=== PATIENT | male | born 1940 | race Caucasian/White ===

== ENCOUNTER → 2017-01-06 | Outpatient (CLI) | payer BC ==
[~2017-01-06] MED LIST: HYDR12.53 PO; PRAV40TA2 PO; SILD50TA PO; VALS320T2 PO
== END | disposition home or self-care (01) ==
LOC: RAD 09:26
PROVIDERS: ATTEND Internal Medicine Geriatric Medicine
DX: Z51.89 Encounter for other specified aftercare (principal); R13.10 Dysphagia, unspecified
CPT/HCPCS: 74230

== ENCOUNTER → 2018-03-15 | Outpatient (CLI) | payer BC | END | disposition home or self-care (01) | LOC: CVU 08:37 | PROVIDERS: ATTEND Internal Medicine Cardiovascular Disease | DX: I65.23 Occlusion and stenosis of bilateral carotid arteries (principal); G45.9 Transient cerebral ischemic attack, unspecified; I67.82 Cerebral ischemia; I10 Essential (primary) hypertension; R42 Dizziness and giddiness; I35.8 Other nonrheumatic aortic valve disorders; I77.1 Stricture of artery | CPT/HCPCS: 70450; 93880 ==

== ENCOUNTER → 2020-02-22 | Outpatient (CLI) | payer BC ==
[~2020-02-22] MED LIST changes: +HYDR12.517 PO; -HYDR12.53 PO
== END | disposition home or self-care (01) ==
LOC: CFH 15:46
PROVIDERS: ATTEND Internal Medicine Cardiovascular Disease
DX: I08.0 Rheumatic disorders of both mitral and aortic valves (principal); I71.2 Thoracic aortic aneurysm, without rupture; I10 Essential (primary) hypertension; Z85.9 Personal history of malignant neoplasm, unspecified
CPT/HCPCS: 93306

== ENCOUNTER → 2020-11-19 | Outpatient (CLI) | payer BC | END | disposition home or self-care (01) | LOC: CFH 12:37 | PROVIDERS: ATTEND Internal Medicine Cardiovascular Disease | DX: I35.1 Nonrheumatic aortic (valve) insufficiency (principal); I11.9 Hypertensive heart disease without heart failure | CPT/HCPCS: 93306 ==

== ENCOUNTER → 2020-12-13 | Outpatient (CLI) | payer BC ==
[~2020-12-13] MED LIST changes: +OMNIPAQUE 350 MG/ML, 100ML BOTTLE ONE
== END | disposition home or self-care (01) ==
LOC: CFH 10:17
PROVIDERS: ATTEND Internal Medicine Cardiovascular Disease
DX: R91.1 Solitary pulmonary nodule (principal); I71.9 Aortic aneurysm of unspecified site, without rupture
CPT/HCPCS: 71275; Q9967